=== PATIENT | male | born 1960 | race Caucasian/White ===

== ENCOUNTER 2023-05-12 13:11 | Emergency (ER) | payer OTHER, SELFPAY ==
[2023-05-12] VITALS (18 sets, daily range): BP systolic 88–130; BP diastolic 44–83; PULSE 80–104; RESP 11–24; TEMP 37.7; O2SAT 94–100; BMI 29.1
--- NOTE | 2023-05-12 | CT_ITS ---
[address] [address] Patient Name: MITCHELL JAMA MRN: [id number] date: 1960 Sex: M Assigned Patient Location: ER Current Patient Location: ER Accession/Order Number: [id number] Exam Date: 05/12/2023 14:50 Report Date: 05/12/2023 15:24 At the request of: FIDEL ABRAHAM Procedure: CT abdomen pelvis w con EXAMINATION: CT abdomen pelvis w con HISTORY: Abdominal pain , nausea, vomiting COMPARISON: No relevant comparison available. TECHNIQUE: CT images were created with IV contrast. Axial, Coronal, and Sagittal images. Dose reduction techniques were achieved by using automated exposure control and/or adjustment of mA and/or kV according to patient size and/or use of iterative reconstruction technique. FINDINGS: LUNG BASES: No visible pulmonary or pleural disease. LIVER: No enlargement, atrophy, abnormal density, or significant focal lesion. BILIARY: No visible dilatation or calcification. PANCREAS: No lesion, fluid collection, ductal dilatation, or atrophy. SPLEEN: No enlargement or focal lesion. ADRENALS: No mass or enlargement. KIDNEYS: Bilateral renal cortical hypodensities possibly cysts BOWEL/MESENTERY: Mild fluid filling of small and large bowel loops with no differential bowel dilation. Normal appendix. AORTA/VASCULAR: No aortic aneurysm or dissection. Mild atherosclerosis. RETROPERITONEUM: No mass or adenopathy. LYMPH NODES: No adenopathy. URINARY BLADDER: No visible focal wall thickening, lesion, or calculus. PELVIC ORGANS: Enlarged prostate gland measuring 5.7 cm, central calcifications ABDOMINAL WALL: 4.8 cm umbilical hernia containing fat without strangulation BONES: No bony lesion or fracture. OTHER: Negative. IMPRESSION: Fluid filling of small and large bowel loops. Consider enteritis Electronically authenticated by: CHONG RUSSELL Date: 05/12/2023 15:24
--- NOTE | 2023-05-12 | XR_ITS ---
The [address] [address] Patient Name: MITCHELL JAMA MRN: [id number] date: 1960 Sex: M Assigned Patient Location: ER Current Patient Location: ER Accession/Order Number: [id number] Exam Date: 05/12/2023 14:20 Report Date: 05/12/2023 14:53 At the request of: FIDEL ABRAHAM Procedure: XR chest 1V EXAMINATION: XR chest 1V 05/12/2023 11:53 AM PDT HISTORY: NAUSEA, VOMITING TECHNIQUE: Single frontal view of the chest acquired. COMPARISONS: None. FINDINGS: Lines/tubes/other: None. Heart and mediastinum: The heart and the mediastinum are within normal limits for technique. Bones: No acute osseous abnormality. Lungs: The lungs are clear. There is no evidence of pneumonia or pulmonary edema. Pleura: There is no significant pleural effusion or pneumothorax. Other: None. IMPRESSION: No acute cardiopulmonary abnormality. Electronically authenticated by: FARHAT LOPEZ Date: 05/12/2023 14:53
--- NOTE | 2023-05-12 13:22 | ECG_ITS ---
The [facility] Test Date: 2023-05-12 Pat Name: MITCHELL JAMA Department: Room: - Gender: Male [employer] Off Worker: : 1960 Requested By: Jluis Gutierrez Order Number: [id number] Reading MD: NADINE BERNAL Measurements Intervals [place] Rate: 108 P: 66 HI: 126 QRS: 70 QRSD: 80 T: 60 QT: 308 QTc: 372 Interpretive Statements 1120 Sinus tachycardia 4068 Nonspecific [place] abnormality 9140 abnormal rhythm ECG No previous ECG available for comparison Electronically Signed On 05-13-2023 6:59:19 EDT by NADINE BERNAL
--- NOTE | 2023-05-12 13:28 | ED_ITS ---
HPI - General Adult General Chief complaint: Nausea/Vomiting/Diarrhea Stated complaint: SYNCOPE/NAUSEA/VOMITING Time Seen by Provider: 05/12/23 13:19 Source: patient and family Mode of arrival: walk-in Limitations: no limitations History of Present Illness HPI narrative: patient is a 63-year-old male who presents to the emergency department for the evaluation of a syncopal episode that occurred at home prior to arrival. Patient states that beginning approximately twelve hours ago, he developed sharp bilateral flank pain and diarrhea. He states he was walking back from the bathroom when he felt very lightheaded and dizzy and states he passed out. He was lowered to the ground and did not hit his head or have any other associated injuries. He states that this time he feels weak but his flank pain has complet adarsh resolved. He is continuing to have diarrhea. He had a sick contact in the home last week with similar symptoms. He denies headache, visual changes, chest pain, shortness of breath, peripheral paresthesias. He has had no urinary symptoms. He states yesterday when he was at [place] he felt bloating in the abdomen. He denies any pain or nausea at this time. He has had no blood in his stool. No medications prior to arrival. Related Data Home Medications Medication Instructions Recorded Confirmed atorvastatin 10 mg tablet (Lipitor) 10 mg PO DAILY 05/12/23 05/12/23 metformin 500 mg tablet,extended 500 mg PO DAILY 05/12/23 05/12/23 release 24 hr Previous Rx's Medication Instructions Recorded dicyclomine 20 mg tablet 20 mg PO QID PRN abdominal pain 05/12/23 #12 tabs ondansetron 4 mg disintegrating 4 mg PO Q6H PRN nausea and 05/12/23 tablet vomiting #12 tabs Allergies Allergy/AdvReac Type Severity Reaction Status Date / Time No Known Drug Allergies Allergy Verified 05/12/23 13:18 Review of Systems ROS Constitutional Denies: fever or chills Ears, nose, mouth, and throat Denies: throat pain or neck pain Cardiovascular Denies: chest pain Respiratory Denies: shortness of breath or cough Gastrointestinal Reports: abdominal pain and diarrhea; Denies: nausea or vomiting Genitourinary Denies: painful urination Musculoskeletal Reports: back pain; Denies: neck pain Integumentary/Breast Denies: rash Neurological Denies: headache Allergic/Immunologic Denies: hives Exam Narrative Exam Narrative: Gen.: Awake, alert, in no distress Head: Normocephalic, atraumatic ENT: Moist mucous membranes Respiratory: No respiratory distress, lungs clear bilaterally Cardio: Regular rate and rhythm Gastrointestinal: Abdomen is soft, nondistended and nontender to palpation Back: No flank tenderness or CVA tenderness Extremities: Moves extremities equally, no injuries noted Psych: Normal mood and affect Neuro: No focal neuro deficit Skin: Warm, dry, intact Constitutional Vital Signs - 24 hr 05/12/23 13:15 05/12/23 14:19 05/12/23 13:18 Temperature 100 F H Pulse Rate 104 H Pulse Rate [Monitor] 94 H Respiratory Rate 20 16 12 Blood Pressure 93/63 Blood Pressure [Left Arm] 93/63 Pulse Oximetry 98 99 96 Oxygen Delivery Method Room Air Room Air 05/12/23 13:34 05/12/23 13:45 05/12/23 14:02 Temperature Pulse Rate 83 83 84 Pulse Rate [Monitor] Respiratory Rate 12 17 20 Blood Pressure 88/62 L 94/62 Blood Pressure [Left Arm] Pulse Oximetry 97 Oxygen Delivery Method 05/12/23 14:10 05/12/23 14:15 05/12/23 14:16 Temperature Pulse Rate 83 103 H 81 Pulse Rate [Monitor] Respiratory Rate 20 19 11 L Blood Pressure 106/64 Blood Pressure [Left Arm] Pulse Oximetry 100 99 98 Oxygen Delivery Method 05/12/23 14:31 05/12/23 15:14 05/12/23 15:15 Temperature Pulse Rate 83 81 Pulse Rate [Monitor] Respiratory Rate 17 24 Blood Pressure 121/66 H 117/66 Blood Pressure [Left Arm] Pulse Oximetry 99 Oxygen Delivery Method 05/12/23 15:15 05/12/23 15:15 05/12/23 15:31 Temperature Pulse Rate 83 84 82 Pulse Rate [Monitor] Respiratory Rate 21 18 20 Blood Pressure 117/66 111/70 Blood Pressure [Left Arm] Pulse Oximetry 94 L 98 98 Oxygen Delivery Method 05/12/23 15:46 05/12/23 16:01 Temperature Pulse Rate 82 Pulse Rate [Monitor] Respiratory Rate 21 Blood Pressure 110/67 91/44 L Blood Pressure [Left Arm] Pulse Oximetry 98 Oxygen Delivery Method Course Vital Signs Vital signs: Vital Signs Temperature 100 F H 06/28/23 13:15 Pulse Rate 94 H 05/12/23 13:15 Respiratory Rate 20 05/12/23 13:15 Blood Pressure 93/63 05/12/23 13:15 Pulse Oximetry 98 05/12/23 13:15 Oxygen Delivery Method Room Air 05/12/23 13:15 Temperature 100 F H 05/12/23 13:15 Pulse Rate 82 05/12/23 15:46 Respiratory Rate 21 05/12/23 15:46 Blood Pressure 91/44 L 05/12/23 16:01 Pulse Oximetry 98 05/12/23 15:46 Oxygen Delivery Method Room Air 05/12/23 14:19 Medical Decision Making MDM Narrative Medical decision making narrative: patient remained on cardiac monitoring in the emergency department. EKG, lab studies including troponin are grossly unremarkable although lactic acid is elevated. Patient was treated with IV fluids with improvement of tachycardia and hypotension. He has no complaints of flank pain or abdominal pain in the Emergency Room. He is able to ambulate to the bathroom with no difficulty. chest x-ray and CT of the abdomen and pelvis with IV contrast show no evidence of acute cardio pulmonary changes but the patient does have evidence of enteritis on the CT. He provided a stool specimen and gastrointestinal panel is pending at this time. Patient was reevaluated by attending physician and he would like to pursue outpatient treatment, vital signs are stable at this time. He is given Zofran and Bentyl for home. He is encouraged follow a brat diet and return to the emergency department if symptoms change or worsen. Medical Records Medical records reviewed: Yes I reviewed the patient's medical records Lab Data Lab results reviewed: Yes I reviewed the patient's lab results Labs: Lab Results 05/12/23 05/12/23 Range/Units 13:25 15:15 WBC 13.1 H (4.0-11.0) 10^3/uL RBC 5.03 (4.70-6.10) 10^6/uL Hgb 15.7 (14.0-18.0) g/dL Hct 47.2 (42.0-54.0) % MCV 93.8 (80.0-94.0) fL MCH 31.2 (25.9-34.0) pg MCHC 33.3 (29.9-35.2) g/dL RDW 13.1 (11.0-15.0) % Plt Count 184 (150-450) 10^3/uL MPV 10.4 (9.5-13.5) fL Seg Neuts % (Manual) 87.0 Band Neutrophils % 2.0 (0-5) % Lymphocytes % (Manual) 2.0 L (20.5-60.0) % Monocytes % (Manual) 9.0 (1.7-12.0) % Eosinophils % (Manual) 0.0 L (0.9-7.0) % Basophils % (Manual) 0.0 L (0.2-2.0) % Neutrophils # (Manual) 11.39 H (1.4-6.5) 10^3/uL Band Neutrophils # 0.3 (0.0-0.3) 10^3/uL Lymphocytes # (Manual) 0.26 L (1.20-3.80) 10^3/uL Monocytes # (Manual) 1.17 H (0.30-0.80) 10^3/uL Eosinophils # (Manual) 0.00 (0.00-0.70) 10^3/uL Basophils # (Manual) 0.00 (0.00-0.10) 10^3/uL VBG pH 7.367 (7.330-7.430) VBG pCO2 43.0 (40.0-52.0) mmHg Sodium 138 (136-145) mmol/L Potassium 3.9 (3.5-5.1) mmol/L Chloride 103 (98-107) mmol/L Carbon Dioxide 21.8 (21.0-32.0) mmol/L Anion Gap 17.1 BUN 24.0 H (7.0-18.0) mg/dL Creatinine 1.15 (0.70-1.30) mg/dL Est GFR ( Amer) >60 (>=60) Est GFR (Non-Af Amer) >60 (>=60) BUN/Creatinine Ratio 20.9 Glucose 192 H (74-106) mg/dL Lactate 4.0 H* (0.4-2.0) mmol/L Calcium 8.5 (8.5-10.1) mg/dL Total Bilirubin 1.3 H (0.2-1.0) mg/dL AST 22 (15-37) U/L ALT 23 (16-63) U/L Alkaline Phosphatase 63 (46-116) U/L Troponin I High Sens 4.9 (4.0-76.1) pg/mL Total Protein 7.3 (6.4-8.2) g/dL Albumin 3.7 (3.4-5.0) g/dL Globulin 3.6 g/dL Albumin/Globulin Ratio 1.0 Lipase 191.0 (73.0-393.0) U/L Urine Color Yellow (YELLOW) Urine Clarity Clear (CLEAR) Urine pH 5.0 (5.0-9.0) Ur Specific [place] 1.015 (1.005-1.025) Urine Protein Negative (NEG/TRACE) mg/dL Urine Glucose (UA) Negative (NEGATIVE) mg/dL Urine Ketones Negative (NEGATIVE) mg/dL Urine Occult Blood Negative (NEGATIVE) Urine Nitrite Negative (NEGATIVE) Urine Bilirubin Negative (NEGATIVE) Urine Urobilinogen 0.2 (0.2-1.0) EU/dL Ur Leukocyte Esterase Negative (NEGATIVE) Urine RBC 0-2 (0-2) #/HPF Urine WBC 0-2 A (NONE SEEN) #/HPF Ur Squamous Epith Cells Rare (NONE/RARE) #/LPF Urine Crystals None seen (None Seen) #/HPF Urine Bacteria None seen (NONE SEEN) #/HPF Urine Casts None seen (NONE SEEN) #/LPF Urine Mucus None seen (NONE SEEN) Ur Culture Indicated? No Imaging Data CT scan - abdomen: Attestation: I have reviewed the pertinent imaging results. Radiologist's impression: Procedure: CT abdomen pelvis w con EXAMINATION: CT abdomen pelvis w con HISTORY: Abdominal pain , nausea, vomiting COMPARISON: No relevant comparison available. TECHNIQUE: CT images were created with IV contrast. Axial, Coronal, and Sagittal images. Dose reduction techniques were achieved by using automated exposure control and/or adjustment of mA and/or kV according to patient size and/or use of iterative reconstruction technique. FINDINGS: LUNG BASES: No visible pulmonary or pleural disease. LIVER: No enlargement, atrophy, abnormal density, or significant focal lesion. BILIARY: No visible dilatation or calcification. PANCREAS: No lesion, fluid collection, ductal dilatation, or atrophy. SPLEEN: No enlargement or focal lesion. ADRENALS: No mass or enlargement. KIDNEYS: Bilateral renal cortical hypodensities possibly cysts BOWEL/MESENTERY: Mild fluid filling of small and large bowel loops with no differential bowel dilation. Normal appendix. AORTA/VASCULAR: No aortic aneurysm or dissection. Mild atherosclerosis. RETROPERITONEUM: No mass or adenopathy. LYMPH NODES: No adenopathy. URINARY BLADDER: No visible focal wall thickening, lesion, or calculus. PELVIC ORGANS: Enlarged prostate gland measuring 5.7 cm, central calcifications ABDOMINAL WALL: 4.8 cm umbilical hernia containing fat without strangulation BONES: No bony lesion or fracture. OTHER: Negative. IMPRESSION: Fluid filling of small and large bowel loops. Consider enteritis Electronically authenticated by: CHONG RUSSELL Date: 05/12/2023 15:24 Chest x-ray: Attestation: I have reviewed the pertinent imaging results. Radiologist's impression: Procedure: XR chest 1V EXAMINATION: XR chest 1V 05/12/2023 11:53 AM PDT HISTORY: NAUSEA, VOMITING TECHNIQUE: Single frontal view of the chest acquired. COMPARISONS: None. FINDINGS: Lines/tubes/other: None. Heart and mediastinum: The heart and the mediastinum are within normal limits for technique. Bones: No acute osseous abnormality. Lungs: The lungs are clear. There is no evidence of pneumonia or pulmonary edema. Pleura: There is no significant pleural effusion or pneumothorax. Other: None. IMPRESSION: No acute cardiopulmonary abnormality. Electronically authenticated by: FARHAT LOPEZ Date: 05/12/2023 14:53 ECG Data Attestation: I personally reviewed and interpreted this ECG as follows: (sinus tachycardia at a rate of 108, no acute ST elevation or ectopy. EKG reviewed by attending physician) Discharge Plan Discharge Chief Complaint: Nausea/Vomiting/Diarrhea Clinical Impression: Gastroenteritis, Syncope, Dehydration Patient Disposition: Home, Self-Care Time of Disposition Decision: 16:17 Condition: Good Prescriptions / Home Meds: New dicyclomine 20 mg tablet 20 mg PO QID PRN (Reason: abdominal pain) Qty: 12 0RF ondansetron 4 mg tablet,disintegrating 4 mg PO Q6H PRN (Reason: nausea and vomiting) Qty: 12 0RF No Action atorvastatin [Lipitor] 10 mg tablet 10 mg PO DAILY metformin 500 mg tablet extended release 24 hr 500 mg PO DAILY Instructions: Dehydration (ED), Syncope (ED), Gastroenteritis (ED) Stand Alone Forms: Portal Instructions Referrals: Physician,Non-Staff, MD [Primary Care Provider] - 1 week
[2023-05-12] MEDS: 0.9 % SODIUM CHLORIDE 1,000 ML 999 ML IV (14:00)
[2023-05-12 14:16] LABS: Hematocrit 47.2 % (42.0-54.0); Hemoglobin 15.7 g/dL (14.0-18.0); Mean Corpuscular HGB Conc 33.3 g/dL (29.9-35.2); Mean Corpuscular Hemoglobin 31.2 pg (25.9-34.0); Mean Corpuscular Volume 93.8 fL (80.0-94.0); Mean Platelet Volume 10.4 fL (9.5-13.5); Platelet Count 184 10^3/uL (150-450); Red Blood Count 5.03 10^6/uL (4.70-6.10); Red Cell Distribution Width 13.1 % (11.0-15.0); White Blood Count 13.1 10^3/uL (4.0-11.0)
[2023-05-12 14:19] LABS: pH VBG 7.367 (7.330-7.430)
[2023-05-12 14:24] LABS: Lymphocytes Absolute Manual 0.26 10^3/uL (1.20-3.80)
[2023-05-12 14:25] LABS: Band Neutrophils Absolute 0.3 10^3/uL (0.0-0.3); Monocytes Absolute Manual 1.17 10^3/uL (0.30-0.80); Segmented Neut Absolute Manual 11.39 10^3/uL (1.4-6.5)
[2023-05-12 14:31] LABS: Anion Gap 17.1
[2023-05-12 14:34] LABS: Alanine Aminotransferase 23 U/L (16-63); Albumin Level 3.7 g/dL (3.4-5.0); Alkaline Phosphatase 63 U/L (46-116); Aspartate Amino Transferase 22 U/L (15-37); BUN Creatinine Ratio 20.9; Bilirubin Total 1.3 mg/dL (0.2-1.0); Calcium 8.5 mg/dL (8.5-10.1); Carbon Dioxide 21.8 mmol/L (21.0-32.0); Chloride 103 mmol/L (98-107); Estimated GFR (African America >60 (>=60); Estimated GFR (Non-African Ame >60 (>=60); Globulin 3.6 g/dL; Glucose 192 mg/dL (74-106); Potassium 3.9 mmol/L (3.5-5.1); Sodium 138 mmol/L (136-145); Total Protein 7.3 g/dL (6.4-8.2); Troponin I High Sensitivity 4.9 pg/mL (4.0-76.1)
[2023-05-12 15:50] LABS: Bilirubin Urine NEGATIVE (NEGATIVE); Blood Urine NEGATIVE (NEGATIVE); Clarity Urine CLEAR (CLEAR); Color Urine YELLOW (YELLOW); Glucose Urine UA NEGATIVE (NEGATIVE); Ketones Urine NEGATIVE (NEGATIVE); Leukocyte Esterase Urine NEGATIVE (NEGATIVE); Nitrite Urine NEGATIVE (NEGATIVE); Protein Urine NEGATIVE (NEG/TRACE); Specific Gravity Urine 1.015 (1.005-1.025); Urobilinogen Urine 0.2 EU/dL (0.2-1.0)
[2023-05-12 15:58] LABS: Bacteria Urine NONE SEEN #/HPF (NONE SEEN); Cast Seen? NONE SEEN #/LPF (NONE SEEN); Crystals Seen? None Seen #/HPF (None Seen); Mucus Urine NONE SEEN (NONE SEEN); RBC Urine 0-2 #/HPF (0-2); Squamous Epithelial Cell Urine RARE #/LPF (NONE/RARE); Urine Culture Indicated NO; WBC Urine 0-2 #/HPF (NONE SEEN)
[2023-05-12 17:24] LABS: Adenovirus F 40/41 NOT DETECTED (NOT DETECTE); Astrovirus NOT DETECTED (NOT DETECTE); Campylobacter NOT DETECTED (NOT DETECTE); Cryptosporidium NOT DETECTED (NOT DETECTE); Cyclospora cayetanensis NOT DETECTED (NOT DETECTE); E coli 0157 NOT DETECTED (NOT DETECTE); Entamoeba histolytica NOT DETECTED (NOT DETECTE); Enteroaggregative E.coli NOT DETECTED (NOT DETECTE); Enteropathogenic E.coli NOT DETECTED (NOT DETECTE); Enterotoxigenic E. coli NOT DETECTED (NOT DETECTE); Giardia lamblia NOT DETECTED (NOT DETECTE); Norovirus GI/GII NOT DETECTED (NOT DETECTE); Plesiomonas shigelloides NOT DETECTED (NOT DETECTE); Rotavirus A NOT DETECTED (NOT DETECTE); Salmonella NOT DETECTED (NOT DETECTE); Sapovirus NOT DETECTED (NOT DETECTE); Shiga-like toxin-producing E.C NOT DETECTED (NOT DETECTE); Shigella/Enteroinvasive E.coli NOT DETECTED (NOT DETECTE); Vibrio NOT DETECTED (NOT DETECTE); Vibrio cholerae NOT DETECTED (NOT DETECTE); Yersinia enterocolitica NOT DETECTED (NOT DETECTE)
== END 2023-05-12 16:51 | disposition home or self-care (01) ==
PROVIDERS: Emergency Provider Emergency Medicine
DX: R55 Syncope and collapse (principal); K52.9 Noninfective gastroenteritis and colitis, unspecified; E86.0 Dehydration; Z79.899 Other long term (current) drug therapy; Z79.84 Long term (current) use of oral hypoglycemic drugs
CPT/HCPCS: 36415; 71045; 74177; 80053; 81001; 82800; 83605; 83690; 84484; 85007; 85025; 87040; 87507; 93005; 99285; Q9967

== ENCOUNTER 2025-06-02 20:53 | Emergency (ER) | payer OTHER, SELFPAY ==
--- OUTSIDE RECORDS SUMMARY | 2025-05-29 09:25 | XMS_ITS | Encounter Summary ---
Author Organization [facility] Address [address] [place] [address] Care Team Providers Care Sorter Operator Name Role Phone ivy ZayYrn gong Primary Care Provider Source Comments In the event this information is protected by the Federal Confidentiality of Alcohol and Drug AbusePatient Records regulations: The Federal rules restrict any use of the information to criminally investigate or prosecute any alcohol or drug abuse patient.[facility] Reason for Referral * Outpatient Procedure (Routine) - Closed Specialty Diagnoses / Procedures Referred By Contac t Referred To Contact ENDOSCOPY Diagnoses Screening for malignant neoplasm of colon Procedures COLONOSCOPY SCREENING COLONOSCOPY FLX DX W/COLLJ SPEC WHEN PFRMD Debbie Zepeda MD [address] [place] [address] [address] [place] [address] Phone: tel: fax: [facility] [address] [facility] [address] [place] [address] Phone: tel: fax: Referral ID Status Reason Start Date Expiration Date V isits Requested Visits Authorized [id number] Closed Auto-Generate d Referral 03/20/2025 06/18/2025 1 1 Reason for Visit * Outpatient Procedure (Routine) - Closed Specialty Diagnoses / Procedures Referred By Contlillie t Referred To Contact ENDOSCOPY Diagnoses Screening for malignant neoplasm of colon Procedures COLONOSCOPY SCREENING COLONOSCOPY FLX DX W/COLLJ SPEC WHEN PFRMD Debbie Zepeda MD [address] [place] [address] Phone: tel: fax: [facility] [address] [place] [address] Phone: tel: fax: Referral ID Status Reason Start Date Expiration Date V isits Requested Visits Authorized [id number] Closed Auto-Generate d Referral 03/20/2025 06/18/2025 1 1 Encounter Details Date Type Department Care Team (Latest Contact Info) Description 05/29/2025 9:25 AM EDT - 05/29/2025 11:59 PM EDT Hospital Encounter [facility] [address] [facility] [address] [place] [id number] Debbie Zepeda MD [address] [place] [address] Screening for malignant neoplasm of colon [Z12.11] Discharge Disposition: Home Social History Tobacco Use Types Packs/Day Years Used Date Smoking Tobacco: Never Smokeless Tobacco: Never Tobacco Cessation:Counseling Given: Not Answered Alcohol Use Standard Drinks/Week Comments Yes 0 (1 standard drink = 0.6 oz pur e alcohol) social Area Deprivation Index Answer Date Adan rded National Score (1-100), lower number is lower ri sk 78 05/29/2025 State Score (1-10), lower number is lower risk 6 05/29/2025 Data from: https://www.neighborhoodatlas.medicine.[facility].edu/. Last address used for calculation Roger ROBERTSON 05/29/2025 Sex and Gender Information Value Date Recorded Sex Assigned at Not on file Legal Sex Male 10:35 PM EST Gender Identity Not on file Sexual Orientation Not on file documented as of this encounter Last Filed Vital Signs Vital Sign Reading Time Taken Comments Blood Pressure 101/59 05/29/2025 11:31 AM EDT Pulse 56 05/29/2025 11:31 AM EDT Temperature 36.6 C (97.8 F) 05/29/2025 9:40 AM EDT Respiratory Rate 16 05/29/2025 11:31 AM EDT Oxygen Saturation 99% 05/29/2025 11:31 AM EDT Inhaled Oxygen Concentration - - Weight 97.1 kg (214 lb) 05/29/2025 9:40 AM EDT Height 188 cm (6' 2 ) 05/29/2025 9:40 AM EDT Body Mass Index 27.48 05/29/2025 9:40 AM EDT documented in this encounter Medications at Time of Discharge semaglutide (OZEMPIC) 2 mg/dose (8 mg/3 mL) pen injector Inject 2 mg subcutaneously one time a week. atorvastatin (LIPITOR) 10 mg tablet Take 10 mg by mouth. multivitamin tablet metFORMIN (GLUCOPHAGE) 500 mg tablet Take by mouth. ALPROSTADIL INJECTION by INJECTION(UNSPECIFI ED PARENTERAL ROUTES) route. OTC PRODUCT Eyelid cleanser, eye scrub pad gabapentin (NEURONTIN) 300 mg capsule Take 300 mg by mouth three times a day. naproxen (NAPROSYN) 500 mg tablet Take 500 mg by mouth two times a day with meals. blood sugar diagnostic test strip before meals and at bedtime. Use with blood glucose test once daily acetaminophen (TYLENOL) 325 mg tablet Take 650 mg by mouth every 6 hours as needed. fluticasone prp-sod.chl,bica rb 50 mcg- 0.9 % ksps Use in the nose. Lancets Use with blood glucose test once daily Lactobacillus Acidophilus chew Take by mouth. glucosamine/miguel dr christin Deleon sod (OSTEO BI-FLEX ORAL) Take by mouth. SIMETHICONE ORAL Take by mouth. vitamin b complex capsule Take 1 capsule by mouth once daily. Yqfov-6-VHI-EPA- Fish Oil (FISH OIL) 1,000 (120-180) mg cap Take 2 g by mouth two times a day. documented as of this encounter H&P Notes * Debbie Zepeda MD - 05/29/2025 10:00 AM EDT Images from the original note were not included. [facility] Op H&P SERVICE DATE: 05/29/2025 REASON FOR CONSULT: hx of polyps REQUESTING PHYSICIAN: No att. providers found PRIMARY CARE PHYSICIAN: rYn Oh DO, DO HPI Mr. Vieira is a 65 year old male with a history notable for the below here for surv colon for hx of polyps. DMT 8.3% Hgb 14.5 From Nov Ozempic last dose May 17 Lost 20 lb since starting 2 mo ago No AC Notes some constipation responding on Miralax since Ozempic started. No GIB, abd pain. PAST MEDICAL HISTORY PAST MEDICAL HISTORY Diagnosis Date Diabetes (HCC) ARLEY c w CPAP Obesity HLD DJD knees Hx colon polyps Low back pain PAST SURGICAL HISTORY Umb hernia ALLERGIES ALLERGIES Allergen Reactions Metformin Other: See Comments MEDICATIONS Current Outpatient Medications Medication Sig Dispense Refill semaglutide (OZEMPIC) 2 mg/dose (8 mg/3 mL) pen injector Inject 2 mg subcutaneously one time a week. atorvastatin (LIPITOR) 10 mg tablet Take 10 mg by mouth. multivitamin tablet metFORMIN (GLUCOPHAGE) 500 mg tablet Take by mouth. ALPROSTADIL INJECTION by INJECTION(UNSPECIFIED PARENTERAL ROUTES) route. OTC PRODUCT Eyelid cleanser, eye scrub pad gabapentin (NEURONTIN) 300 mg capsule Take 300 mg by mouth three times a day. naproxen (NAPROSYN) 500 mg tablet Take 500 mg by mouth two times a day with meals. blood sugar diagnostic test strip before meals and at bedtime. Use with blood glucose test once daily acetaminophen (TYLENOL) 325 mg tablet Take 650 mg by mouth every 6 hours as needed. fluticasone prp-sod.chl,bicarb 50 mcg- 0.9 % ksps Use in the nose. Lancets Use with blood glucose test once daily Lactobacillus Acidophilus chew Take by mouth. glucosamine/chondr waller A sod (OSTEO BI-FLEX ORAL) Take by mouth. SIMETHICONE ORAL Take by mouth. vitamin b complex capsule Take 1 capsule by mouth once daily. Absbq-8-BUO-EPA-Fish Oil (FISH OIL) 1,000 (120-180) mg cap Take 2 g by mouth two times a day. Current Facility-Administered Medications Medication Dose Route Frequency Provider Last Rate Last Admin NaCl 0.9% iv infusion 30 mL/hr INTRAVENOUS CONTINUOUS Debbie Zepeda MD Facility-Administered Medications Ordered in Other Encounters Medication Dose Route Frequency Provider Last Rate Last Admin NaCl 0.9% iv infusion INTRAVENOUS X (ONE-STEP ONLY) CONTINUOUS PRN Sarah Akins (Computer Network Engineer)(Hist, MEDICAL NUMERICAL CONTROL OPERATOR.BREAKFAST HOST 200 mL/hr at 05/29/25 1049 New Bag at 05/29/25 1049 SOCIAL HISTORY Social History Tobacco Use Smoking status: Never Smokeless tobacco: Never Substance Use Topics Alcohol use: Yes Comment: social Drug use: Never Nonsmoker taking him home Minimal ETOH FAMILY HISTORY No CRC or other GI CA REVIEW OF SYSTEMS A complete and comprehensive 12 system ROS was otherwise negative. PHYSICAL EXAM 05/29/25 0940 BP: 129/84 Pulse: 62 Resp: 16 Temp: 36.6 °C (97.8 °F) SpO2: 99% Weight: 97.1 kg (214 lb) Height: 188 cm (6' 2 ) Body mass index is 27.48 kg/m². GENERAL: NAD, AAOx4 Skin: No rash, no jaundice or stigmata of chronic liver disease HEENT: PERRLA, EOMI, anicteric sclerae, normal OP, no cervical or supraclavicular LAD LUNGS: CTAB CV: RRR, normal S1, S2, no mrg ABDOMEN: Soft, non-tender, non-distended, normoactive BS, no HSM EXT: wwp, no cce Neuro: grossly nonfocal, no asterixis LABS See above ASSESSMENT AND PLAN Colonoscopy procedure rba dw pt and he agrees to proceed Thank you for allowing us to participate in the care of this patient. Please call with any further questions or concerns. Debbie Zepeda MD [facility] Pg#: [phone] SIGNATURE: Debbie Zepeda MD PATIENT NAME: Chandler Vieira DATE: May 29, 2025TIME: 10:56 AM documented in this encounter Plan of Treatment Not on file documented as of this encounter Procedures Procedure Name Priority Date/Time Associated Diagnosis Comments COLONOSCOPY SCREENING Routine 05/29/2025 10:31 AM EDT Screening for malignant neoplasm of colon documented in this encounter Results * COLONOSCOPY SCREENING (05/29/2025 10:31 AM EDT) Anatomical Region Laterality Modality Other 05/29/2025 10:3 1 AM EDT Narrative 05/29/2025 11:37 AM EDT [facility] Patient Name: Chandler Lyles Procedure Date: 05/29/2025 10:31 AM Date of : 1960 Age: 65 Gender: Male Race: White Attending MD: Debbie Zepeda MD, [id number] Procedure: Colonoscopy Referring MD: Debbie Zepeda MD Providers: Debbie Zepeda MD Indications: High risk colon cancer surveillance: Personal history of colonic polyps Findings: The perianal and digital rectal examinations were normal. The terminal ileum appeared normal. Multiple small and large-mouthed diverticula were found in the sigmoid colon. Two sessile polyps were found in the descending colon. The polyps were 5 to 6 mm in size. These polyps were removed with a cold snare. Resection and retrieval were complete. Verification of patient identification for the specimen was done by the nurse using the patient's name, date and medical record number. Estimated blood loss was minimal. Non-bleeding internal hemorrhoids were found during retroflexion. The hemorrhoids were Grade I (internal hemorrhoids that do not prolapse). Patient Profile: This is a 65 year old male. Refer to note in patient chart for documentation of history and physical. Impression: - The examined portion of the ileum was normal. - Diverticulosis in the sigmoid colon. - Two 5 to 6 mm polyps in the descending colon, removed with a cold snare. Resected and retrieved. - Non-bleeding internal hemorrhoids. Recommendation: - Await pathology results. - Repeat colonoscopy date to be determined after pending pathology results are reviewed for surveillance based on pathology results. - Return to referring physician as previously scheduled. - Patient has a contact number available for emergencies. The signs and symptoms of potential delayed complications were discussed with the patient. Return to normal activities tomorrow. Written discharge instructions were provided to the patient. - Continue present medications. - High fiber diet. Medicines: Propofol per Anesthesia Procedure: Pre-Anesthesia Assessment: - Prior to the procedure, a History and Physical was performed, and patient medications and allergies were reviewed. The patient is competent. The risks and benefits of the procedure and the sedation options and risks were discussed with the patient. All questions were answered and informed consent was obtained. Patient identification and proposed procedure were verified by the physician and the nurse in the pre-procedure area in the procedure room. Mental Status Examination: alert and oriented. Airway Examination: normal oropharyngeal airway and neck mobility. Respiratory Examination: clear to auscultation. CV Examination: normal. Prophylactic Antibiotics: The patient does not require prophylactic antibiotics. Prior Anticoagulants: The patient has taken no anticoagulant or antiplatelet agents. ASA Grade Assessment: III - A patient with severe systemic disease. After reviewing the risks and benefits, the patient was deemed in satisfactory condition to undergo the procedure. The anesthesia plan was to use deep sedation / analgesia. Immediately prior to administration of medications, the patient was re-assessed for adequacy to receive sedatives. The heart rate, respiratory rate, oxygen saturations, blood pressure, adequacy of pulmonary ventilation, and response to care were monitored throughout the procedure. The physical status of the patient was re-assessed after the procedure. After I obtained informed consent, the scope was passed under direct vision. Throughout the procedure, the patient's blood pressure, pulse, and oxygen saturations were monitored continuously. Provation AI/GI Genius was used during withdrawal. The COLONOSCOPE was introduced through the anus and advanced to the terminal ileum. The colonoscopy was performed without difficulty. The patient tolerated the procedure well. The quality of the bowel preparation was good. The terminal ileum, ileocecal valve, appendiceal orifice, and rectum were photographed. Complications: No immediate complications. Procedure Code(s): --- Professional --- 61335, Colonoscopy, flexible; with removal of tumor(s), polyp(s), or other lesion(s) by snare technique Diagnosis Code(s): --- Professional --- Z86.010, Personal history of colonic polyps K64.0, First degree hemorrhoids D12.4, Benign neoplasm of descending colon K57.30, Diverticulosis of large intestine without perforation or abscess without bleeding CPT copyright 2020 [employer]. All rights reserved. The codes documented in this report are preliminary and upon laborer wharf review may be revised to meet current compliance requirements. Debbie Zepeda MD 05/29/2025 11:37:12 AM Number of Addenda: 0 Note Initiated On: 05/29/2025 10:31 AM us Debbie Zepeda MD DIGESTIVE DISEASE Fin al Result documented in this encounter Visit Diagnoses Diagnosis Screening for malignant neoplasm of colon documented in this encounter Care Teams Sorter Operator Relationship Specialty Start Date End Date Yrn Oh DO [address] [address] PCP - General Family Medicine 03/23/25 documented as of this encounter
[2025-06-02 20:56] VITALS: BP 118/77; PULSE 73; TEMP 36.4; O2SAT 99; BMI 27.5
--- OUTSIDE RECORDS SUMMARY | 2025-06-02 21:01 | XMS_ITS | Clinical Summary ---
Author Organization [facility] Address [address] [place] [address] Care Team Providers Care Parking Lot Chauffeur Name Role Phone ivy ZayYrn gong Rodriguez MEADOWS Primary Care Provider Allergies Active Allergy Reactions Criticality Noted Date Comments Metformin Other: See Comments Low 05/07/2023 Medications atorvastatin (LIPITOR) 10 mg tablet Take 10 mg by mouth. Active multivitamin tablet Active metFORMIN (GLUCOPHAGE) 500 mg tablet Take by mouth. A ctive ALPROSTADIL INJECTION by INJECTION(UNSPECIF IED PARENTERAL ROUTES) route. Active OTC PRODUCT Eyelid cleanser, eye scrub pad Active gabapentin (NEURONTIN) 300 mg capsule Take 300 mg by mouth three times a day. Active naproxen (NAPROSYN) 500 mg tablet Take 500 mg by mouth two times a day with meals. Active blood sugar diagnostic test strip before meals and at bedtime. Use with blood glucose test once daily Active acetaminophen (TYLENOL) 325 mg tablet Take 650 mg by mouth every 6 hours as needed. Active fluticasone prp-sod.chl,bic arb 50 mcg- 0.9 % ksps Use in the nose. Act radha Lancets Use with blood glucose test once daily Active Lactobacillus Acidophilus chew Take by mouth. Activ e glucosamine/cho ndr waller A sod (OSTEO BI-FLEX ORAL) Take by mouth. Activ e SIMETHICONE ORAL Take by mouth. Activ e vitamin b complex capsule Take 1 capsule by mouth once daily. Active Dyxqi-3-EBL-EPA -Fish Oil (FISH OIL) 1,000 (120-180) mg cap Take 2 g by mouth two times a day. Active semaglutide (OZEMPIC) 2 mg/dose (8 mg/3 mL) pen injector Inject 2 mg subcutaneously one time a week. Active Encounters Date Type Department Care Team Description 06/01/2025 Results Follow-Up [facility] [address] [place] [address] [address] [place] [phone] Elena Villar APRN.OFFICE MACHINE TECHNICIAN 05/29/2025 10:47 AM EDT Anesthesia Event [facility] [address] [place] [phone] Sarah Akins (Lamp Cleaner Street Light)(Hist, OFFICE ADMINISTRATOR.MUSIC ORCHESTRATOR 05/29/2025 9:25 AM EDT - 05/29/2025 11:59 PM EDT Hospital Encounter [facility] [address] [place] [address] [address] [place] [phone] Debbie Zepeda MD Screening for malignant neoplasm of colon [Z12.11] Discharge Disposition: Home 05/29/2025 Orders Only [facility] [address] [place] [address] [address] [place] [phone] Debbie Zepeda MD Hx of colonic polyps (Primary Dx) 04/02/2025 Patient Update [facility] [address] [place] [address] [address] [place] [phone] Amanda Duff MA 03/23/2025 Telephone [facility] [address] [place] [address] [address] [place] [phone] Debbie Zepeda MD 03/23/2025 Orders Only [facility] [address] [place] [address] [address] [place] [address] Debbie Zepeda MD Hx of colonic polyps (Primary Dx) 03/12/2025 Telephone [facility] [address] [place] [address] [address] [place] [address] Debbie Zepeda MD from Last 3 Months Social History Tobacco Use Types Packs/Day Years [...] is lower risk 6 05/29/2025 Data from: https://www.neighborhoodatlas.medicine.[facility]/. Last address used for calculation Roger ROBERTSON 05/29/2025 Sex and Gender Information Value Date Recorded Sex Assigned at Not on file Legal Sex Male 10:35 PM EST Gender Identity Not on file Sexual Orientation Not on file Last Filed Vital Signs Vital Sign Reading [...] Mass Index 27.48 05/29/2025 9:40 AM EDT Plan of Treatment Health Maintenance Due Date Last Done Comments Anxiety Screening 02/10/1976 Depression Screening 02/10/1976 Hepatitis C Screening 02/10/[address] Colonography 2003 Cologuard (FIT-DNA) 2003 Diabetes Screening 2003 Fecal Occult Blood 2003 Prostate Cancer Screening Discussion 2003 Sigmoidoscopy 2003 Covid-19 Vaccine (2023-2 5 season) 2024 10/23/2021, 01/02/2021, 12/04/2020 Advance Directive Discussion 11/15/2024 Influenza Vaccine (#1) 2025 , 10/01/2023, 10/02/2022, Additional history exists Colonoscopy 05/29/2026 05/29/2025, 04/05/2022, 12/30/2016, Additional history exists Colorectal Cancer Screening 05/29/2026 DTaP,Tdap,Td Vaccine (3 - Td or Tdap) 04/21/2034 04/21/2024, 07/20/2014 Shingrix Vaccine Completed 06/07/2019, 03/06/2019 Pneumococcal Vaccine: 50+ Completed 2021, 12/08/2019, 09/05/1999 RSV Vaccine Completed 04/20/2025 Procedures Procedure Name Priority Date/Time Associated Diagnosis Comments COLONOSCOPY SCREENING Routine 05/29/2025 10:31 AM EDT Screening for malignant neoplasm of colon PATHOLOGY REPORT Routine 05/29/2025 from Last 3 Months Results * COLONOSCOPY SCREENING (05/29/2025 10:31 AM EDT) Anatomical Region Laterality Modality Other 05/29/2025 10:3 1 AM EDT Narrative 05/29/2025 11:37 AM EDT [facility] Patient Name: Chandler Lyles Procedure Date: 05/29/2025 10:31 AM Date of : 1960 Age: 65 Gender: Male Race: White Attending MD: Debbie Zepeda MD, [id number] Procedure: Colonoscopy Referring MD: Debbie Zepeda MD [...] immediate complications. Procedure Code(s): --- Professional --- 19801, Colonoscopy, flexible; with removal of tumor(s), polyp(s), or other lesion(s) by snare technique Diagnosis Code(s): --- Professional --- Z86.010, Personal history of colonic polyps K64.0, First degree hemorrhoids D12.4, Benign neoplasm of descending colon K57.30, Diverticulosis of large intestine without perforation or abscess without bleeding CPT copyright 2020 [employer]. All rights reserved. The codes documented in this report are preliminary and upon slice cutting machine operator review may be revised to meet current compliance requirements. Debbie Zepeda MD 05/29/2025 11:37:12 AM Number of Addenda: 0 Note Initiated On: 05/29/2025 10:31 AM Debbie Zepeda MD DIGESTIVE DISEASE Fin al Result * PATHOLOGY REPORT (05/29/2025) Clinical Information Personal history of colonic polyps. [facility] DIAGNOSIS: Tyrel Dodd Comment: POLYP X2, DESCENDING COLON, POLYPECTOMIES: FRAGMENTS OF SESSILE SERRATED POLYP. This case was reviewed in consultation with Dr. Luzmaria Cobb. Read By TAMMY GARCÍA, [facility] Gross description: [facility] Comment: DESCENDING POLYP x2 Received in formalin are multiple fragments of johnson tissue measuring 3.0 x 0.6 x 0.1 cm in aggregate. The specimen is submitted entirely in one cassette. CPT Codes: [facility] Comment: [id number] CPT DISCLAIMER [facility] Comment: [facility], [facility] ASSUMES NO RESPONSIBILITY FOR THE ACCURACY OF CPT CODES PROVIDED WHICH ARE FOR INFORMATIONAL PURPOSES ONLY. CPT CODES ARE PAYOR SPECIFIC AND CPT CODING IS THE SOLE RESPONSIBILITY OF THE BILLING ENTITY. Place [facility] Service [facility] Comment: Isa Dodd [address] [facility] [address] Performing Site [facility] [address] [place] [address]. [address],[place] [address] [facility] 05/29/2025 05/29/2025 3:5 0 PM EDT us Debbie Zepeda MD CYTOLOGY Final Result [facility] [address] [place] [address] [employer] [address] [place] [address] [place] [address] from Last [address] [place] [address] [place] [address] [employer] Care Teams Parking Lot Chauffeur Relationship Specialty Start Date End Date Yrn Alvarez DO [address] [place] [address] PCP - General Family Medicine 03/23/25
--- OUTSIDE RECORDS SUMMARY | 2025-06-02 21:01 | XMS_ITS | Clinical Summary ---
Author Organization [facility] Address [facility] access [facility] [place] [address] Care Team Providers Care Digital Advertising Analyst Name Role Phone Yrn Alvarez DO Primary Care Provider Social History Tobacco Use Types Packs/Day Years Used Date Smoking Tobacco: Never Assessed Sex and Gender Information Value Date Recorded Sex Assigned at Not on file Legal Sex Male 4:47 PM EDT Gender Identity Not on file Sexual Orientation Not on file Plan of Treatment Not on file Insurance [facility] Care Teams Digital Advertising Analyst Relationship Specialty [place] [address] [place] [address] PCP - General Family Medicine 02/03/22
--- OUTSIDE RECORDS SUMMARY | 2025-06-02 21:01 | XMS_ITS | Encounter Summary ---
Author Organization [facility] Address [address] [place] [address] Phone Care Team Providers Care Database Management System Specialist Name Role Phone Unavailable Primary Care Provider Unavailabl e Encounter Details Date Type Department Care Team (Late st Contact Info) Description 02/20/2022 Orders Only [facility] [address] [place] [address] Conversion, Onbase Social History Tobacco Use Types Packs/Day Years Used Date Smoking Tobacco: Never Assessed Sex and Gender Information Value Date Recorded Sex Assigned at Not on file Legal Sex Male 7:46 AM EST Gender Identity Not on file Sexual Orientation Not on file documented as of this encounter Plan of Treatment Scheduled Orders Name Type Priority Associated Diagnoses Orde r Schedule AUDIOLOGY REPORT - ONBASE SCAN Audiology Ordered: 022 documented as of this encounter Visit Diagnoses Not on filedocumented in this encounter
--- OUTSIDE RECORDS SUMMARY | 2025-06-02 21:01 | XMS_ITS | Encounter Summary ---
Author Organization [facility] Address [address] [place] [address] Care Team Providers Care Pecan Grower Name Role Phone Yrn Alvarez Primary Care Provider Source Comments In the event this information is protected by the Federal Confidentiality of Alcohol and Drug AbusePatient Records regulations: The Federal rules restrict any use of the information to criminally investigate or prosecute any alcohol or drug abuse patient.[facility] Encounter Details Date Type Department Care Team (Late st Contact Info) Description 06/01/2025 Results Follow-Up [facility] [address] [place] [address] Elena Villar APRN.[employer] [address] [place] [id number] Social History Tobacco Use Types Packs/Day Years Used Date Smoking Tobacco: Never Smokeless Tobacco: Never Alcohol Use Standard Drinks/Week Comments Yes 0 (1 standard drink = 0.6 oz pur e alcohol) social Area Deprivation Index Answer Date Adan rded National Score (1-100), lower number is lower ri sk 78 05/29/2025 State Score (1-10), lower number is lower risk 6 05/29/2025 Data from: https://www.neighborhoodatlas.medicine.[facility].edu/. Last address used for calculation Roger GARZA 05/29/2025 Sex and Gender Information Value Date Recorded Sex Assigned at Not on file Legal Sex Male 10:35 PM EST Gender Identity Not on file Sexual Orientation Not on file documented as of this encounter Plan of Treatment Not on file documented as of this encounter Visit Diagnoses Not on filedocumented in this encounter Care Teams Pecan Grower Relationship Specialty Start Date End Date Yrn Alvarez DO [facility] [place] [address] PCP - General Family Medicine 03/23/25 documented as of this encounter
--- OUTSIDE RECORDS SUMMARY | 2025-06-02 21:01 | XMS_ITS | Clinical Summary ---
Author Organization [facility] Address [address] [phone] Phone Care Team Providers Care Missile And Missile Checkout Technician Name Role Phone Unavailable Primary Care Provider Unavailabl e Social History Tobacco Use Types Packs/Day Years Used Date Smoking Tobacco: Never Assessed Sex and Gender Information Value Date Recorded Sex Assigned at Not on file Legal Sex Male 7:46 AM EST Gender Identity Not on file Sexual Orientation Not on file Last Filed Vital Signs Vital Sign Reading Time Taken Comments Blood Pressure - - Pulse - - Temperature - - Respiratory Rate - - Oxygen Saturation - - Inhaled Oxygen Concentration - - Weight 105 kg (231 lb 2 oz) 01/15/2023 9:[address] Height 188 cm (6' 2 ) 01/15/2023 9:55 AM EST Body Mass Index 29.67 01/15/2023 9:55 AM EST Plan of Treatment Health Maintenance Due Date Last Done Comments CT Colonography 1960 Colonoscopy 1960 Colorectal Cancer Screening 1960 FIT-DNA (Cologuard) 1960 FIT 1960 Lipid Panel 1960 Sigmoidoscopy 1960 Yearly Adult Physical 1960 MMR Vaccines (1 of 1 - Stand robb series) 1959 Diabetes Screening 02/10/1976 Hepatitis C Screening 02/10/1976 DTaP/Tdap/Td Vaccines (1 - Tdap) 02/10/1980 Pneumococcal Vaccine (1 of 1 - PCV) 02/10/2008 Zoster Vaccines (1 of 2) 02/10/2008 COVID-19 Vaccine (1 - 2023-2 5 season) 2024 Influenza Vaccine (#1) 2025 RSV High Risk: (Elderly (60+ ) or Population) (1 - 1-dose 75+ series) 2033 HIB Vaccines Aged Out No longer eligi ble based on patient's age to complete this topic HPV Vaccines Aged Out No longer eligi ble based on patient's age to complete this topic Hepatitis A Vaccines Aged Out No long er eligible based on patient's age to complete this topic Hepatitis B Vaccines Aged Out No long er eligible based on patient's age to complete this topic IPV Vaccines Aged Out No longer eligi ble based on patient's age to complete this topic Meningococcal Vaccine Aged Out No vivi shanda eligible based on patient's age to complete this topic Rotavirus Vaccines Aged Out No longer eligible based on patient's age to complete this topic
--- OUTSIDE RECORDS SUMMARY | 2025-06-02 21:01 | XMS_ITS | Encounter Summary ---
Author Organization [facility] Address [address] [place] [address] Care Team Providers Care Account Officer Name Role Phone Yrn Alvarez DO Primary Care Provider Source Comments In the event this information is protected by the Federal Confidentiality of Alcohol and Drug AbusePatient Records regulations: The Federal rules restrict any use of the information to criminally investigate or prosecute any alcohol or drug abuse patient.[facility] Encounter Details Date Type Department Care Team (Late st Contact Info) Description 04/02/2025 Patient Update [facility] [address] [place] [address] [address] [place] [address] Amanda Duff MA Social History Tobacco Use Types Packs/Day Years [...] on filedocumented in this encounter Care Teams Account Officer Relationship Specialty Start Date End Date Yrn Alvarez DO [address] [place] [address] PCP - General Family Medicine 03/23/25 documented as of this encounter
--- OUTSIDE RECORDS SUMMARY | 2025-06-02 21:01 | XMS_ITS | Encounter Summary ---
Author Organization [facility] Address [address] [place] [address] Care Team Providers Care Lighting Adviser Name Role Phone Yrn Alvarez Primary Care Provider Source Comments In the event this information is protected by the Federal Confidentiality of Alcohol and Drug AbusePatient Records regulations: The Federal rules restrict any use of the information to criminally investigate or prosecute any alcohol or drug abuse patient.[facility] Encounter Details Date Type Department Care Team (Late st Contact Info) Description 05/29/2025 Orders Only [facility] [address] [place] [address] [address] [place] [phone] Debbie Zepeda MD [address] [place] [id number] Hx of colonic polyps (Primary Dx) Social History Tobacco Use Types Packs/Day Years Used Date Smoking Tobacco: Never Smokeless Tobacco: Never Alcohol Use Standard Drinks/Week Comments Yes 0 (1 standard drink = 0.6 oz pur e alcohol) social Area Deprivation Index Answer Date Adan rded National Score (1-100), lower number is lower ri sk 78 05/29/2025 State Score (1-10), lower number is lower risk 6 05/29/2025 Data from: https://www.[facility] medical centeratlas.[facility]/. Last address used for calculation Roger GARZA 05/29/2025 Sex and Gender Information Value Date Recorded Sex Assigned at Not on file Legal Sex Male 10:35 PM EST Gender Identity Not on file Sexual Orientation Not on file documented as of this encounter Plan of Treatment Scheduled Orders Name Type Priority Associated Diagnoses Orde r Schedule SURGICAL PATHOLOGY Lab Routine Hx of colonic polyps Ordered: 05/29/2025 documented as of this encounter Procedures Procedure Name Priority Date/Time Associated Diagnosis Comments PATHOLOGY REPORT Routine 05/29/2025 documented in this encounter Results * PATHOLOGY REPORT (05/29/2025) Clinical Information Personal history of colonic polyps. [facility] DIAGNOSIS: [facility] Comment: POLYP X2, DESCENDING COLON, POLYPECTOMIES: FRAGMENTS OF SESSILE SERRATED POLYP. This case was reviewed in consultation with Dr. Luzmaria Cobb. Read By TAMMY GARCÍA DO [facility] Gross description: [facility] Comment: DESCENDING POLYP x2 Received in formalin are multiple fragments of johnson tissue measuring 3.0 x 0.6 x 0.1 cm in aggregate. The specimen is submitted entirely in one cassette. CPT Codes: [facility] Comment: [id number] CPT DISCLAIMER [facility] Comment: [facility]. ASSUMES NO RESPONSIBILITY FOR THE ACCURACY OF CPT CODES PROVIDED WHICH ARE FOR INFORMATIONAL PURPOSES ONLY. CPT CODES ARE PAYOR SPECIFIC AND CPT CODING IS THE SOLE RESPONSIBILITY OF THE BILLING ENTITY. Place of Service [facility] Comment: [facility] [address],[place] [address] Performing Site [facility] [address],[place] [address] [facility] 05/29/2025 05/29/2025 3:5 0 PM EDT Debbie Zepeda MD CYTOLOGY Final Result [facility] [address] [place] [address] [facility] [address] [address] documented in this encounter Visit Diagnoses Diagnosis Hx of colonic polyps- Primary Personal history of colonic polyps documented in this encounter Care Teams Lighting Adviser Relationship Specialty Start Date End Date Yrn Alvarez DO [address] [place] [address] PCP - General Family Medicine 03/23/25 documented as of this encounter
[2025-06-02 21:07] VITALS: PULSE 58
[2025-06-02] MEDS: 0.9 % SODIUM CHLORIDE 1,000 ML 1000 ML IV (21:35)
[2025-06-02] MEDS: HYDROMORPHONE HCL 1 MG/ML CARTRIDGE IVP (21:36)
[2025-06-02 21:40] LABS: Hematocrit 44.5 % (42.0-54.0); Hemoglobin 15.7 g/dL (14.0-18.0); Immature Granulocytes Abs Auto 0.03 10^3/uL (0.00-0.03); Immature Granulocytes Pct Auto 0.3 % (0.0-0.5); Lymphocytes Absolute Auto 0.9 10^3/uL (1.2-3.8); Mean Corpuscular HGB Conc 35.3 g/dL (29.9-35.2); Mean Corpuscular Hemoglobin 31.7 pg (25.9-34.0); Mean Corpuscular Volume 89.7 fL (80.0-94.0); Platelet Count 194 10^3/uL (150-450); Red Blood Count 4.96 10^6/uL (4.70-6.10); White Blood Count 11.0 10^3/uL (4.0-11.0)
[2025-06-02 21:57] LABS: Alanine Aminotransferase 49 U/L (16-63); Albumin Globulin Ratio 1.0; Albumin Level 4.3 g/dL (3.4-5.0); Alkaline Phosphatase 82 U/L (46-116); Anion Gap 20.3; Aspartate Amino Transferase 26 U/L (15-37); Blood Urea Nitrogen 16.0 mg/dL (7.0-18.0); Calcium 10.6 mg/dL (8.5-10.1); Carbon Dioxide 23.7 mmol/L (21.0-32.0); Chloride 101 mmol/L (98-107); Estimated GFR (African America >60 (>=60 mL/min/1.73m^2); Estimated GFR (Non-African Ame >60 (>=60 mL/min/1.73m^2); Globulin 4.3 g/dL; Glucose 165 mg/dL (74-106); Lipase 43.0 U/L (16.0-77.0); Potassium 4.0 mmol/L (3.5-5.1); Sodium 141 mmol/L (136-145); Total Protein 8.6 g/dL (6.4-8.2)
[2025-06-02 22:00] VITALS: PULSE 54
[2025-06-02 23:00] VITALS: PULSE 64
[2025-06-03] VITALS: PULSE 54
[2025-06-03 00:27] VITALS: PULSE 66
--- NOTE | 2025-06-03 00:27 | ED.ABDPAIN1 ---
HPI - Abdominal Pain General Chief Complaint: Abdominal Pain Stated Complaint: Abdominal Pain Time Seen by Provider: 06/02/25 21:09 Source: patient Mode of arrival: walk-in Limitations: no limitations History of Present Illness HPI narrative: cc - abdominal pain Patient presents with increasingly worsening symptoms of abdominal pain, nausea and vomiting that began a day after a colonoscopy was performed. Patient indicated that at times the pain was across the epigastrium all other times is in the left lower quadrant. He admitted to some nausea and vomiting. He had diarrhea daily since the colonoscopy. He had been continuing to try and eat normally over the last couple of days while his symptoms persisted. No blood in urine or stool. No fever or chills. The colonoscopy was apparently arranged through the [place] and he underwent the procedure at a facility in [place]. 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 Additionally, the patient previously had hernia repair -the umbilicus -many years ago but cannot tell me the date, the surgeons name or the facility in which that was performed. Related Data Home Medications �Medication �Instructions �Recorded �Confirmed atorvastatin 40 mg tablet mg 06/02/25 semaglutide 1 mg/dose (4 mg/3 mL) 1 mg subcut QWEEK 06/02/25 06/02/25 subcutaneous pen injector (Ozempic) Previous Rx's �Medication �Instructions �Recorded ondansetron 4 mg disintegrating 4 mg PO Q6H PRN nausea and 05/12/23 tablet vomiting #12 tabs Allergies Allergy/AdvReac Type Severity Reaction Status Date / Time No Known Drug Allergies Allergy Verified 06/02/25 21:02 [facility] Social History Little interest or pleasure in doing things: not at all Feeling down, depressed, or hopeless: not at all Exam Narrative Exam Narrative: Nurses notes and vital signs reviewed and patient is not hypoxic. afebrile General: Well-appearing and in no apparent distress. Skin: Warm, dry, no pallor noted. Head: Normocephalic, atraumatic. Eye: Pupils are equal, round and EOMI. No scleral icterus. Ears, Nose, Mouth, and Throat: Oral mucosa is moist Cardiovascular: Regular Rate and Rhythm without murmur, gallop or rub. Respiratory: No accessory muscle use or respiratory distress. Lungs are clear to auscultation, no wheezing, rales or rhonchi Back: No CVA tenderness Musculoskeletal: normal ROM GI: Abdomen is soft, non-distended. Normal bowel sounds. No masses appreciated. Diffuse epigastric and left lower quadrant tenderness to palpation. No rebound, guarding, or rigidity noted. Neurological: A&O x4. No cranial nerve dysfunction observed. No truncal ataxia. Moves all extremities. Sensation intact. Psychiatric: Cooperative and interactive. Normal mood and affect. Constitutional Vital Signs, click to edit/add: Last Vital Signs Temp 97.6 F 06/02/25 20:56 Pulse 73 06/02/25 20:56 Resp 18 06/02/25 20:56 BP 118/77 06/02/25 20:56 Pulse Ox 99 06/02/25 20:56 O2 Del Method Room Air 06/02/25 20:56 Course Vital Signs Vital signs: Vital Signs Temperature 97.6 F 06/02/25 20:56 Pulse Rate 73 06/02/25 20:56 Respiratory Rate 18 06/02/25 20:56 Blood Pressure 118/77 06/02/25 20:56 Pulse Oximetry 99 06/02/25 20:56 Oxygen Delivery Method Room Air 06/02/25 20:56 Temperature 97.6 F 06/02/25 20:56 Pulse Rate 73 06/02/25 20:56 Respiratory Rate 18 06/02/25 20:56 Blood Pressure 118/77 06/02/25 20:56 Pulse Oximetry 99 06/02/25 20:56 Oxygen Delivery Method Room Air 06/02/25 20:56 MDM - Abdominal Pain MDM Narrative Medical decision making narrative: Peripheral IV established and blood drawn and sent for testing. Patient was ordered to undergo CT scanning of the abdomen pelvis with IV contrast. He was given IV Dilaudid for pain and IV Zofran for nausea. He felt much better after ED treatment. Blood testing was unremarkable. Normal white blood cell count. Normal electrolytes and renal function. Unremarkable LFTs. His total bilirubin is elevated and direct bilirubin was elevated at 0.4. CT scan revealed small bowel obstruction -see below. Results discussed with the patient and he was agreeable to be transferred to [facility] for admission. I spoke with Dr. Resendiz, the general surgeon on-call, and also spoke with Dr. Lopez, the hospitalist, and both were in agreement with the patient being transferred to [facility] for evaluation and subsequent surgical consultation. ED nurse was asked to place an NG tube and then set up to low intermittent wall suction -this was placed without complication. Once bed assignment is given, we will make arrangements for transport for this patient to their facility. We received a bed assignment and arranges were made for the patient to go by ambulance to [facility] for admission with a ETA for departure around 2:30 AM. He is stable for transfer. Lab Data Attestation: I reviewed the patient's lab results. Labs: Lab Results 06/02/25 Range/Units 21:30 WBC 11.0 (4.0-11.0) 10^3/uL RBC 4.96 (4.70-6.10) 10^6/uL Hgb 15.7 (14.0-18.0) g/dL Hct 44.5 (42.0-54.0) % MCV 89.7 (80.0-94.0) fL MCH 31.7 (25.9-34.0) pg MCHC 35.3 H (29.9-35.2) g/dL RDW 12.5 (11.0-15.0) % Plt Count 194 (150-450) 10^3/uL MPV 9.7 (9.5-13.5) fL Neut % (Auto) 85.9 H (43.0-75.0) % Lymph % (Auto) 8.3 L (20.5-60.0) % [place] % (Auto) 5.3 (1.7-12.0) % Eos % (Auto) 0.0 L (0.9-7.0) % Baso % (Auto) 0.2 (0.2-2.0) % Neut # (Auto) 9.5 H (1.4-6.5) 10^3/uL Lymph # (Auto) 0.9 L (1.2-3.8) 10^3/uL [place] # (Auto) 0.6 (0.3-0.8) 10^3/uL Eos # (Auto) 0.0 (0.0-0.7) 10^3/uL Baso # (Auto) 0.0 (0.0-0.1) 10^3/uL Abs Immat Gran (auto) 0.03 (0.00-0.03) 10^3/uL Imm/Tot Granulo (auto) 0.3 (0.0-0.5) % Sodium 141 (136-145) mmol/L Potassium 4.0 (3.5-5.1) mmol/L Chloride 101 (98-107) mmol/L Carbon Dioxide 23.7 (21.0-32.0) mmol/L Anion Gap 20.3 BUN 16.0 (7.0-18.0) mg/dL Creatinine 1.06 (0.70-1.30) mg/dL Est GFR ( Amer) >60 (>=60 mL/min/1.73m^2) Est GFR (Non-Af Amer) >60 (>=60 mL/min/1.73m^2) BUN/Creatinine Ratio 15.1 Glucose 165 H (74-106) mg/dL Calcium 10.6 H (8.5-10.1) mg/dL Total Bilirubin 1.6 H (0.2-1.0) mg/dL Direct Bilirubin 0.4 H (0.0-0.2) mg/dL AST 26 (15-37) U/L ALT 49 (16-63) U/L Alkaline Phosphatase 82 (46-116) U/L Total Protein 8.6 H (6.4-8.2) g/dL Albumin 4.3 (3.4-5.0) g/dL Globulin 4.3 g/dL Albumin/Globulin Ratio 1.0 Lipase 43.0 (16.0-77.0) U/L Imaging Data CT scan - abdomen: Radiologist's impression: There are abnormally dilated, fluid-filled loops of proximal to mid small bowel with nondilated small bowel distally. There appears to be a relatively abrupt transition from dilated to nondilated small bowel anteriorly within the left lower quadrant, suggestive of small bowel obstruction. The large bowel is unremarkable. The appendix is normal. There is no free intraperitoneal fluid. Small bowel obstruction. This may relate to adhesions could be evaluated with a small bowel follow-through. Discharge Plan Discharge Chief Complaint: Abdominal Pain Clinical Impression: Small bowel obstruction Patient Disposition: [facility] Time of Disposition Decision: 00:41 Discharge Location: [facility]
--- NOTE | 2025-06-03 00:57 | XR_ITS ---
[address] [address] Patient Name: MITCHELL JAMA MRN: [id number] date: 1960 Sex: M Assigned Patient Location: ER Current Patient Location: ED.MAIN Accession/Order Number: [id number] Exam Date: 06/03/2025 16:50 Report Date: 06/03/2025 16:52 At the request of: FIDEL ABRAHAM Procedure: XR chest 1V PA CHEST: CLINICAL HISTORY: check NG tube placement COMPARISON: CT abdomen pelvis outside facility 06/02/2025 Borderline enlarged cardiomediastinal silhouette. Lungs clear. No effusion or pneumothorax. Enteric tube tip and side-port left upper quadrant satisfactory position. Dilated gas-filled loop of small bowel left upper quadrant noted. XR/XR chest 1V IMPRESSION: Enteric tube tip and side-port left upper quadrant. Negative acute pleural-parenchymal disease. Impression dictated by: Derick Galeano M.D. 06/03/2025 4:52 PM Dictation Location: [place] [address] Electronically authenticated by: [id number] Y Date: 06/03/2025 16:52
[2025-06-03 02:12] VITALS: BP 113/70
[2025-06-03 02:13] VITALS: O2SAT 97
[2025-06-03] MEDS: HYDROMORPHONE HCL 1 MG/ML CARTRIDGE IVP (02:20)
== END 2025-06-03 02:28 | disposition short-term general hospital (02) ==
PROVIDERS: Emergency Provider Emergency Medicine; PCP Family Medicine
DX: K56.609 Unspecified intestinal obstruction, unspecified as to partial versus complete obstruction (principal)
CPT/HCPCS: 36415; 71045; 74177; 80053; 82248; 83690; 85025; 96361; 96374; 96375; 96376; 99285; J1171; J2405; Q9967